=== PATIENT | female | born 1980 | race Caucasian/White ===

== ENCOUNTER 2021-07-11 07:48 | Day surgery (SDC) | payer BC ==
[2021-07-08 14:15] VITALS: BMI 24.7
== END 2021-07-11 13:19 | disposition home or self-care (01) ==
LOC: SDC 07:48
PROVIDERS: ATTEND Surgery
PROC: 0WUF0JZ Supplement Abdominal Wall with Synthetic Substitute, Open Approach (ICD-10-PCS; principal; 2021-07-11)
DX: K43.2 Incisional hernia without obstruction or gangrene (principal); N20.0 Calculus of kidney; N83.209 Unspecified ovarian cyst, unspecified side; Z79.899 Other long term (current) drug therapy; Z88.1 Allergy status to other antibiotic agents; Z88.6 Allergy status to analgesic agent
CPT/HCPCS: C1889; J0690; J2250; J2270; J2550; J2765; J3010; J3490; S0020

== ENCOUNTER 2021-10-09 17:30 | Outpatient (CLI) | payer BC | END 2021-10-09 17:31 | disposition home or self-care (01) | LOC: SLEEPLAB 17:30 | PROVIDERS: ATTEND Family Medicine | DX: G47.33 Obstructive sleep apnea (adult) (pediatric) (principal); F41.9 Anxiety disorder, unspecified; R06.83 Snoring; G47.00 Insomnia, unspecified; G47.10 Hypersomnia, unspecified | CPT/HCPCS: 95800 ==